=== PATIENT | male | born 1945 | race Caucasian/White ===

== ENCOUNTER 2017-12-16 01:19 | Emergency (ER) | payer SELFPAY ==
[~2017-12-16] VITALS: Ht 172.7 cm; Wt 77.1 kg
[2017-12-16] MEDS ORDERED: ONDANSETRON ODT 4 MG TAB.RAPDIS SL ONE (01:45)
[2017-12-16] MEDS ORDERED: HYDROCODONE/APAP 5-325MG TABLET PO ONE (01:45)
[2017-12-16] MEDS ORDERED: ONDANSETRON HCL 4 MG TABLET ONE (01:46)
[2017-12-16] MEDS ORDERED: HYDROCODONE/APAP 5-325MG TABLET ONE (01:46)
[2017-12-16] MEDS ORDERED: ONDANSETRON 4 MG/2 ML VIAL IM ONE (02:30)
[2017-12-16] MEDS ORDERED: MORPHINE SULFATE 4 MG/1 ML DISP.SYRIN IM ONE (02:30)
[2017-12-16] MEDS ORDERED: MORPHINE SULFATE 4 MG/1 ML DISP.SYRIN ONE (02:42)
[2017-12-16] MEDS ORDERED: ONDANSETRON 4 MG/2 ML VIAL ONE (02:42)
[2017-12-16] MEDS ORDERED: SODIUM BICARBONATE 4.2 % (NEUT) 5 ML VIAL TP ONE (03:15)
[2017-12-16] MEDS ORDERED: TDAP DIPH,PERTUSS,TET VAC/PF 0.5 ML DISP.SYRIN IM ONE ×2 (03:15→03:40)
[2017-12-16] MEDS ORDERED: LIDOCAINE HCL 2% 20 ML VIAL TP ONE (03:15)
[2017-12-16] MEDS ORDERED: LIDOCAINE HCL 2% 20 ML VIAL ONE (03:16)
[2017-12-16] MEDS ORDERED: SODIUM BICARBONATE 4.2 % (NEUT) 5 ML VIAL ONE (03:18)
--- NOTE | 2017-12-16 04:00 | NUR ---
Patient discharged to home in stable conditon. Patient reported having less pain prior to discharge. Written and verbal after care instructions given. Patient verbalizes understanding of instructions. Patient able to ambulate unassisted with steady gait. Patient left with all personal belongings.
[2017-12-16 04:47] VITALS: BP 142/84
== END 2017-12-16 04:00 | disposition home or self-care (01) ==
LOC: ER 01:25
DX: S01.01XA Laceration without foreign body of scalp, initial encounter (principal); S06.0X0A Concussion without loss of consciousness, initial encounter; S00.03XA Contusion of scalp, initial encounter; S13.4XXA Sprain of ligaments of cervical spine, initial encounter; W01.198A Fall on same level from slipping, tripping and stumbling with subsequent striking against other object, initial encounter; Y93.89 Activity, other specified; Y92.89 Other specified places as the place of occurrence of the external cause; Y99.8 Other external cause status
CPT/HCPCS: 70450; 72125; 90715; A4217; A4663; J2270; J2405; J3490; L8699; Q0162

== ENCOUNTER 2017-12-22 10:50 | Emergency (ER) | payer SELFPAY ==
[~2017-12-22] VITALS: Ht 182.9 cm; Wt 72.6 kg
--- NOTE | 2017-12-22 10:58 | NUR ---
Patient discharged to home in stable conditon with family. Written and verbal after care instructions given. Patient verbalizes understanding of instructions.
== END 2017-12-22 10:59 | disposition home or self-care (01) ==
LOC: ER 10:51
DX: S01.01XD Laceration without foreign body of scalp, subsequent encounter (principal); Z48.02 Encounter for removal of sutures; X58.XXXD Exposure to other specified factors, subsequent encounter
CPT/HCPCS: 99281; A4663